=== PATIENT | female | born 2005 | race Caucasian/White ===

== ENCOUNTER → 2024-01-05 15:49 | Outpatient (REF) | payer OTHER, SELFPAY | LOC: RCS 15:49 | PROVIDERS: ATTENDING PHYSICIAN Internal Medicine Cardiovascular Disease; FAMILY PHYSICIAN Internal Medicine | DX: R42 Dizziness and giddiness (principal) | CPT/HCPCS: 93306 ==

== ENCOUNTER 2024-03-02 14:30 | Outpatient (RCR) | payer OTHER, SELFPAY ==
[2024-02-10 14:35] VITALS: BP 123/79
[2024-02-10] MEDS: VENOFER 110 MG IV (14:48)
[2024-02-10] MEDS: NSS 250 IV (14:48)
[2024-02-10 15:46] VITALS: BP 119/76
[2024-02-17 14:30] VITALS: BP 111/73
[2024-02-17] MEDS: NSS 250 IV (14:40)
[2024-02-17] MEDS: VENOFER 110 MG IV (14:40)
[2024-02-17 15:50] VITALS: BP 112/70
[2024-02-24 14:40] VITALS: BP 123/73
[2024-02-24] MEDS: VENOFER 110 MG IV (14:48)
[2024-02-24 15:51] VITALS: BP 110/69
[2024-03-02 14:45] VITALS: BP 116/80
[2024-03-02] MEDS: NSS 250 IV (14:58)
[2024-03-02] MEDS: VENOFER 110 MG IV (14:59)
[2024-03-02 16:00] VITALS: BP 124/83
== END 2024-03-03 10:32 | disposition home or self-care (01) ==
LOC: OID 14:30
PROVIDERS: ATTENDING PHYSICIAN Nurse Practitioner Adult Health; FAMILY PHYSICIAN Internal Medicine
DX: R79.0 Abnormal level of blood mineral (principal); R42 Dizziness and giddiness
CPT/HCPCS: 96361; 96365; J1756

== ENCOUNTER 2024-03-11 14:28 | Outpatient (RCR) | payer OTHER, SELFPAY ==
[2024-03-11 14:35] VITALS: BP 114/65
[2024-03-11] MEDS: VENOFER 110 MG IV (14:55)
[2024-03-11] MEDS: NSS 250 IV (14:55)
[2024-03-11 16:22] VITALS: BP 99/60
--- NOTE | 2024-03-11 16:23 | PTCARENOTE ---
pt's venofer completed and saline finished infusing, pt's iv site noted to have a slight pink non-raised discoloration. Pt offered no complaints of pain or itchiness, no rashes or hives noted anywhere else on body. Pt states 'This happened
everytime I have had the iron, and then by the time I get home, it is gone.' Pt in no distress, iv removed and d/c to home.
== END 2024-03-12 12:41 | disposition home or self-care (01) ==
LOC: OID 14:28
PROVIDERS: ATTENDING PHYSICIAN Nurse Practitioner Adult Health; FAMILY PHYSICIAN Internal Medicine
DX: R79.0 Abnormal level of blood mineral (principal); R42 Dizziness and giddiness
CPT/HCPCS: 96365; J1756